=== PATIENT | male | born 1990 | race Caucasian/White ===

== ENCOUNTER 2021-04-01 08:37 | Emergency (ER) | payer OTHER, SELFPAY ==
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
[2021-04-01 08:50] VITALS: BP 135/85; PULSE 87; RESP 16; TEMP 36.8; O2SAT 96; BMI 25.0
[2021-04-01 09:32] LABS: COVID-19 Test Negative (Negative)
--- NOTE | 2021-04-01 10:34 | PC.NURSE ---
CARE screener Francis at bedside
[2021-04-01 13:38] LABS: Amphetamine Screen Urine Not Detected (Not Detect); Barbiturates, Urine Not Detected (Not Detect); Benzodiazepines Screen Urine Not Detected (Not Detect); Cannabinoid Screen Urine POSITIVE (Not Detect); Cocaine Screen Urine Not Detected (Not Detect); Fentanyl, urine Not Detected (Not Detect); Opiate Screen Urine Not Detected (Not Detect); Phencyclidine Screen Urine Not Detected (Not Detect)
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
--- NOTE | 2021-04-03 12:04 | MHC.CARE ---
CARE TEAM contacted pt. He stated he is doing very well today. He disclosed he is on the waiting list for outpatient providers and reported he was provided with [facility] Crisis contact information. He denied having any depressive symptoms at this time and denied suicidal and homicidal ideation, plan or intent.
== END 2021-04-01 13:39 | disposition home or self-care (01) ==
PROVIDERS: Physician Assistant; Emergency Provider Emergency Medicine
DX: F33.1 Major depressive disorder, recurrent, moderate (principal); R45.851 Suicidal ideations; F90.9 Attention-deficit hyperactivity disorder, unspecified type; Z20.822 Contact with and (suspected) exposure to COVID-19; Z79.899 Other long term (current) drug therapy
CPT/HCPCS: 36415; 80307; 87635; 99283; 99284

== ENCOUNTER 2021-04-28 00:35 | Emergency (ER) | payer OTHER, SELFPAY ==
[2021-04-28 00:37] VITALS: BP 161/88; PULSE 74; RESP 18; TEMP 36.4; O2SAT 98; BMI 24.4
[2021-04-28 02:17] VITALS: BP 135/82; PULSE 65; RESP 16; TEMP 36.9; O2SAT 99
[2021-04-28 03:12] LABS: MANUAL DIFF FLAG NO
[2021-04-28 03:15] LABS: Basophils Percent Auto 0.3 % (0-2); Eosinophils Percent Auto 0.3 % (0-4); Hematocrit 41.5 % (42.0-52.0); Hemoglobin 14.1 g/dl (14.0-18.0); Imm Gran Abs Auto 0.02 X10*3/uL (0.00-0.03); Imm Gran Pct Auto 0.3 % (0.0-0.4); Lymphocytes Absolute Auto 2.1 X10*3/uL (1.2-4.9); Lymphocytes Percent Auto 28.4 % (20-40); Mean Corpuscular Hemoglobin 29.8 pg (27.0-33.0); Mean Corpuscular Volume 87.7 fL (80.0-98.0); Mean Platelet Volume 10.9 fL (9.4-12.4); Monocytes Absolute Auto 0.6 X10*3/uL (0.1-1.2); Monocytes Percent Auto 7.4 % (2-11); Neutrophils Absolute Auto 4.7 x10*3/uL (2.0-8.3); Neutrophils Percent Auto 63.3 % (45-73); Platelet Count 203 X10*3/uL (160-400); Red Blood Count 4.73 X10*6/uL (4.60-5.80); Red Cell Distribution Width 11.7 % (11.0-16.0); White Blood Count 7.4 X10*3/uL (4.8-10.8)
[2021-04-28 03:27] LABS: COVID-19 Test Negative (Negative)
[2021-04-28 03:34] LABS: Alanine Aminotransferase 30 U/L (0-40); Albumin Level 4.1 g/dL (3.5-5.0); Alkaline Phosphatase 94 U/L (39-117); Anion Gap 10 (12-20); Aspartate Amino Transferase 16 U/L (5-37); Bilirubin Total 0.2 mg/dL (0.0-1.0); Blood Urea Nitrogen 10 mg/dL (9-16); Calcium 9.4 mg/dL (8.4-10.2); Carbon Dioxide 29 mmol/L (22-29); Chloride 106 mmol/L (96-108); Creatinine Clr Calc Pharmacy 132.8; Estimated Glomerular Filt Rate > 60; Glucose Random 103 mg/dL (60-115); Lipase 44 U/L (8-78); Potassium 4.3 mmol/L (3.3-5.1); Sodium 141 mmol/L (135-145); Total Protein 6.9 g/dL (6.5-8.0)
[2021-04-28 03:40] LABS: Troponin-I High Sensitivity < 3.5 ng/L (<3.5-35.0)
[2021-04-28] MEDS: Magnesium Hydrox/Alum Hydrox 30 ML ORAL.SUSP PO (03:58)
[2021-04-28] MEDS: Lidocaine HCl Viscous 2 % 15 ML SOLUTION 10 ML MUCOUS MEM (03:58)
--- NOTE | 2021-04-28 03:58 | ED_ITS ---
HPI - Abdominal Pain General Chief Complaint: Dizziness Stated Complaint: dizziness, vomited blood Time Seen by Provider: 04/28/21 01:56 Source: patient Mode of arrival: ambulatory History of Present Illness HPI narrative: 31-year-old male who states that 3 days ago he had an episode of ?vomiting blood in dizziness, patient states he has been taking care of her friend of his and states that his dizziness has worsened over the last 3 days. This has not been associated with any changes in vision, speech, extremity numbness/tingling/wea kness and patient states he is otherwise healthy and has been eating and drinking normally. He has some complaints acid reflux for which she had relief after taking a friend's omeprazole. He denies headache or dizziness at this time. He denies being COVID-19 vaccinated. Related Data Previous Rx's Medication Instructions Recorded omeprazole 40 mg capsule,delayed 40 mg PO DAILY 30 Days #30 cap 04/28/21 release Allergies Allergy/AdvReac Type Severity Reaction Status Date / Time cefaclor [From CECLOR] Allergy Severe RASH Verified 04/28/21 00:37 Sulfa (Sulfonamide Allergy Severe HIVES Verified 04/28/21 00:37 Antibiotics) [SULFA (SULFONAMIDE ANTIBIOTICS)] amoxicillin [From Allergy Mild RASH Verified 04/28/21 00:37 AUGMENTIN] cefprozil [From CEFZIL] Allergy Mild RASH Verified 04/28/21 00:37 clavulanic acid Allergy Mild RASH Verified 04/28/21 00:37 [From AUGMENTIN] Penicillins [PENICILLINS] Allergy Mild RASH Verified 04/28/21 00:37 phenytoin [From DILANTIN] Allergy Mild UNKNOWN Verified 04/28/21 00:37 sulfamethoxazole Allergy Mild RASH Verified 04/28/21 00:37 [From BACTRIM] trimethoprim [From Allergy Mild RASH Verified 04/28/21 00:37 BACTRIM] Review of Systems Review of Systems Pertinent positives and negatives as stated in HPI 10 point review of systems is otherwise negative. Physical Exam Verdana 4l Vital Signs: Verdana 4d Verdana 4d Vital Signs: Verdana 4d Verdana 4Bd Last Vital Signs Verdana 4d Registered Veterinary Technician New 4d Registered Veterinary Technician New 4d Temp 98.5 F 04/28/21 02:17 Registered Veterinary Technician New 4d Pulse 65 04/28/21 02:17 Registered Veterinary Technician New 4d Resp 16 04/28/21 02:17 BP 135/82 04/28/21 02:17 Pulse Ox 99 04/28/21 02:17 BMI result Body Mass Index 24.4 VITAL SIGNS: Reviewed. GENERAL: Well developed, well nourished, in no acute distress. HEAD: Normocephalic/atraumatic EYES: PERRLA, EOMI EARS: Ext canals without abnormality, TMs non-bulging and non-erythematous, but right ear has mild dried cerumen impaction NOSE: Nares patent bilateral OROPHARYNX: no oral lesions noted, posterior pharynx clear LUNGS: Normal breath sounds. No adventitious sounds or accessory muscle use. S pO2<99> CARDIOVASCULAR: Regular rate and rhythm without noted murmurs ABDOMEN: Soft, non-tender, non-distended with bowel sounds. NEUROLOGIC: Alert and oriented x 4. Strength and sensation to light touch were grossly intact x 4, Romberg's test is negative for acute findings, gait is steady without ataxia Course Course Course Narrative: 31-year-old male with history and clinical presentation suggestive possible viral symptoms or symptoms secondary to cerumen. Low clinical suspicion for any neurologic etiology. On review of documentation patient is noted to be a marijuana smoker and may contribute to his symptoms of feeling dizzy/lightheaded. On review of all investigations there are no acute findings, patient was provided with a GI cocktail for acid reflux and started on a course of omeprazole that was sent to the pharmacy. He was otherwise instructed to follow-up with the primary care provider for re-evaluation further outpatient follow-up. Patient was asymptomatic in ambulating with a steady gait at the time of discharge. MDM - Abdominal Pain Lab Data Result diagrams: 04/28/21 03:05 04/28/21 03:05 Labs: Lab Results 04/28/21 04/28/21 04/28/21 Range/Units 02:58 03:05 03:05 WBC 7.4 (4.8-10.8) X10*3/uL RBC 4.73 (4.60-5.80) X10*6/uL Hgb 14.1 (14.0-18.0) g/dl Hct 41.5 L (42.0-52.0) % MCV 87.7 (80.0-98.0) fL MCH 29.8 (27.0-33.0) pg MCHC 34.0 (31.0-36.0) g/dl RDW 11.7 (11.0-16.0) % Plt Count 203 (160-400) X10*3/uL MPV 10.9 (9.4-12.4) fL Immature Gran % (Auto) 0.3 (0.0-0.4) % Neut % (Auto) 63.3 (45-73) % Lymph % (Auto) 28.4 (20-40) % Ector % (Auto) 7.4 (2-11) % Eos % (Auto) 0.3 (0-4) % Baso % (Auto) 0.3 (0-2) % Lymph # (Auto) 2.1 (1.2-4.9) X10*3/uL Ector # (Auto) 0.6 (0.1-1.2) X10*3/uL Eos # (Auto) 0.0 (0.0-0.4) X10*3/uL Baso # (Auto) 0.0 (0.0-0.2) X10*3/uL Abs Immat Gran (auto) 0.02 (0.00-0.03) X10*3/uL Absolute Neuts (auto) 4.7 (2.0-8.3) x10*3/uL Absolute Nucleated RBC 0.000 (0.0-0.012) X10*3/uL Nucleated RBC % (auto) 0.0 (0.0-0.2) /100WBC Sodium 141 (135-145) mmol/L Potassium 4.3 (3.3-5.1) mmol/L Chloride 106 (96-108) mmol/L Carbon Dioxide 29 (22-29) mmol/L Anion Gap 10 L (12-20) BUN 10 (9-16) mg/dL Creatinine 0.85 (0.5-1.4) mg/dL Estim Creat Clear Calc 132.8 Estimated GFR > 60 Random Glucose 103 (60-115) mg/dL Calcium 9.4 (8.4-10.2) mg/dL Total Bilirubin 0.2 (0.0-1.0) mg/dL AST 16 (5-37) U/L ALT 30 (0-40) U/L Alkaline Phosphatase 94 (39-117) U/L Troponin I High Sens (<3.5-35.0) ng/L Total Protein 6.9 (6.5-8.0) g/dL Albumin 4.1 (3.5-5.0) g/dL Lipase 44 (8-78) U/L COVID-19 (ERI) Negative (Negative) COVID-19 Clin Com See Note 04/28/21 Range/Units 03:06 WBC (4.8-10.8) X10*3/uL RBC (4.60-5.80) X10*6/uL Hgb (14.0-18.0) g/dl Hct (42.0-52.0) % MCV (80.0-98.0) fL MCH (27.0-33.0) pg MCHC (31.0-36.0) g/dl RDW (11.0-16.0) % Plt Count (160-400) X10*3/uL MPV (9.4-12.4) fL Immature Gran % (Auto) (0.0-0.4) % Neut % (Auto) (45-73) % Lymph % (Auto) (20-40) % Ector % (Auto) (2-11) % Eos % (Auto) (0-4) % Baso % (Auto) (0-2) % Lymph # (Auto) (1.2-4.9) X10*3/uL Ector # (Auto) (0.1-1.2) X10*3/uL Eos # (Auto) (0.0-0.4) X10*3/uL Baso # (Auto) (0.0-0.2) X10*3/uL Abs Immat Gran (auto) (0.00-0.03) X10*3/uL Absolute Neuts (auto) (2.0-8.3) x10*3/uL Absolute Nucleated RBC (0.0-0.012) X10*3/uL Nucleated RBC % (auto) (0.0-0.2) /100WBC Sodium (135-145) mmol/L Potassium (3.3-5.1) mmol/L Chloride (96-108) mmol/L Carbon Dioxide (22-29) mmol/L Anion Gap (12-20) BUN (9-16) mg/dL Creatinine (0.5-1.4) mg/dL Estim Creat Clear Calc Estimated GFR Random Glucose (60-115) mg/dL Calcium (8.4-10.2) mg/dL Total Bilirubin (0.0-1.0) mg/dL AST (5-37) U/L ALT (0-40) U/L Alkaline Phosphatase (39-117) U/L Troponin I High Sens < 3.5 (<3.5-35.0) ng/L Total Protein (6.5-8.0) g/dL Albumin (3.5-5.0) g/dL Lipase (8-78) U/L COVID-19 (ERI) (Negative) COVID-19 Clin Com Discharge Plan Discharge Clinical Impression: GERD (gastroesophageal reflux disease), Gastritis Patient Disposition: Home, Self-Care Additional Instructions: Follow-up with your primary care provider in 1-2 days. Prescriptions: New omeprazole 40 mg capsule,delayed release(DR/EC) 40 mg PO DAILY 30 Days Qty: 30 0RF Interventions: ED Discharge Assessment Last Done: 04/28/21 04:22 Discharge Date/Time: 04/28/21 04:23 [facility] Past Medical History Source: nursing notes reviewed Social History Social History Advance Directives: No Advance Directives Information Provided: Yes
== END 2021-04-28 04:23 | disposition home or self-care (01) ==
PROVIDERS: Emergency Provider Student in an Organized Health Care Education/Training Program
DX: K21.9 Gastro-esophageal reflux disease without esophagitis (principal); K29.70 Gastritis, unspecified, without bleeding; Z20.822 Contact with and (suspected) exposure to COVID-19
CPT/HCPCS: 36415; 80053; 83690; 84484; 85025; 87635; 99283; 99284